=== PATIENT | female | born 1995 | race Hispanic/Latino ===

== ENCOUNTER 2021-03-17 22:00 | Emergency (ER) | payer SELFPAY ==
[~2021-03-17] VITALS: Ht 165.1 cm; Wt 103.4 kg
[2021-03-17] MEDS ORDERED: SODIUM CHLORIDE 0.9% 1000ML 1,000 ML IV SCH (22:30)
[2021-03-17] MEDS ORDERED: FAMOTIDINE 20 MG/2 ML VIAL IV STA (22:30)
[2021-03-17] MEDS ORDERED: ONDANSETRON HCL INJ 2MG/ML 2ML 2 MG/ML VIAL IV STA (22:30)
[2021-03-17] MEDS ORDERED: ONDANSETRON HCL INJ 2MG/ML 2ML 2 MG/ML VIAL ONE (22:51)
[2021-03-17] MEDS ORDERED: SODIUM CHLORIDE 0.9% 1000ML 1,000 ML ONE (22:51)
[2021-03-17] MEDS ORDERED: FAMOTIDINE 20 MG/2 ML VIAL IV ONE (22:52)
[2021-03-17] MEDS ORDERED: PROMETHAZINE HCL (IM) 25 MG/ML VIAL IM ONE (23:15)
[2021-03-17] MEDS ORDERED: SODIUM CHLORIDE 0.9% 50ML 50 ML ONE ×2 (23:15→23:19)
[2021-03-17] MEDS ORDERED: PROMETHAZINE 25MG/ NS 50ML (IV) IV ONE (23:15)
[2021-03-17] MEDS ORDERED: IOPAMIDOL 370 MG/ML 200 ML INFUS..BTL INJ ONE (23:19)
[2021-03-18] MEDS ORDERED: MORPHINE SULFATE INJ 4 MG/ML INJ 1ML IV STA (00:26)
[2021-03-18] MEDS ORDERED: METOCLOPRAMIDE HCL 10 MG/2ML VIAL ONE (01:00)
[2021-03-18] MEDS ORDERED: METOCLOPRAMIDE HCL 10 MG/2ML VIAL IV ONE (01:00)
[2021-03-18] MEDS ORDERED: MORPHINE SULFATE INJ 4 MG/ML INJ 1ML ONE (01:00)
[2021-03-18] MEDS ORDERED: PANTOPRAZOLE SO40 MG PO (01:27)
[2021-03-18] MEDS ORDERED: FAMOTIDINE40 MG PO (01:32)
[2021-03-18] MEDS ORDERED: PROMETHAZINE HC25 M1 PO (01:34)
[2021-03-18] MEDS ORDERED: ONDANSETRON ODT4 MG PO (01:34)
[2021-03-18 01:47] VITALS: BP 160/95
[2021-03-18] MEDS ORDERED: HALDOL1 MG PO (13:05)
== END 2021-03-18 01:47 | disposition home or self-care (01) ==
LOC: FSED 22:34
DX: R10.13 Epigastric pain (principal); R11.2 Nausea with vomiting, unspecified; K29.70 Gastritis, unspecified, without bleeding; F12.90 Cannabis use, unspecified, uncomplicated
CPT/HCPCS: 74177; 80048; 80076; 81003; 81025; 85025; 96374; 96375; 96376 ×2; 99284; J2270; J2405; J2550; J2765; J7030; Q9967

== ENCOUNTER 2021-03-18 12:34 | Emergency (ER) | payer SELFPAY ==
[~2021-03-18] VITALS: Ht 165.1 cm; Wt 99.8 kg
[~2021-03-18 12:34] MED LIST: FAMOTIDINE40 MG PO; ONDANSETRON ODT4 MG PO; PANTOPRAZOLE SO40 MG PO; PROMETHAZINE HC25 M1 PO
[2021-03-18] MEDS ORDERED: HALOPERIDOL LACTATE 5 MG/ML VIAL IM ONE ×2 (13:00→13:30)
[2021-03-18] MEDS ORDERED: HALOPERIDOL LACTATE 5 MG/ML VIAL ONE (13:02)
[2021-03-18] MEDS ORDERED: HALDOL1 MG PO (13:05)
[2021-03-18] MEDS ORDERED: DONNATAL/LIDOCAINE/MAALOX 30 ML SUSP PO STA (13:55)
[2021-03-18] MEDS ORDERED: MAGNESIUM/ALUMINUM/SIMETHICONE 30 ML UDC PO PRN (14:00)
[2021-03-18] MEDS ORDERED: BELLADONNA ALK/PHENOBARBITAL 5 ML UDC ONE (14:07)
[2021-03-18] MEDS ORDERED: LIDOCAINE VISC 2% SOLN 15 ML UDC ONE (14:07)
[2021-03-18 14:17] VITALS: BP 138/72
== END 2021-03-18 14:21 | disposition home or self-care (01) ==
LOC: FSED 12:53
DX: R11.2 Nausea with vomiting, unspecified (principal); F12.90 Cannabis use, unspecified, uncomplicated
CPT/HCPCS: 96372; 99283; J1630

== ENCOUNTER 2021-06-05 06:00 | Emergency (ER) | payer MEDICARE ==
[~2021-06-05] VITALS: Ht 165.1 cm; Wt 98.9 kg
[~2021-06-05 06:00] MED LIST changes: +HALDOL1 MG PO
[2021-06-05] MEDS ORDERED: AUGMENTIN 875-1 EACH PO (08:10)
== END 2021-06-05 08:21 | disposition home or self-care (01) ==
LOC: FSED 07:55
DX: J02.9 Acute pharyngitis, unspecified (principal); H65.91 Unspecified nonsuppurative otitis media, right ear; I10 Essential (primary) hypertension
CPT/HCPCS: 81003; 81025; 83518; 99283

== ENCOUNTER 2022-07-20 12:46 | Emergency (ER) | payer SELFPAY ==
[~2022-07-20] VITALS: Ht 165.1 cm; Wt 95.3 kg
[~2022-07-20 12:46] MED LIST changes: +AUGMENTIN 875-1 EACH PO
[2022-07-20] MEDS ORDERED: KETOROLAC TROMETHAMINE 30 MG/ML VIAL ONE (13:17)
[2022-07-20] MEDS ORDERED: ONDANSETRON HCL INJ 2MG/ML 2ML 2 MG/ML VIAL ONE (13:17)
[2022-07-20] MEDS ORDERED: SODIUM CHLORIDE 0.9% 1000ML 1,000 ML ONE ×2 (13:17→14:04)
[2022-07-20] MEDS ORDERED: IOPAMIDOL 370 MG/ML 100 ML INFUS..BTL INJ ONE (13:38)
[2022-07-20] MEDS ORDERED: ONDANSETRON HCL INJ 2MG/ML 2ML 2 MG/ML VIAL IV STA ×2 (14:41→14:55)
[2022-07-20] MEDS ORDERED: METOCLOPRAMIDE HCL 10 MG/2ML VIAL IV ONE (14:45)
[2022-07-20] MEDS ORDERED: FAMOTIDINE 20 MG/2 ML VIAL IV STA (14:50)
[2022-07-20] MEDS ORDERED: KETOROLAC TROMETHAMINE 30 MG/ML VIAL IV STA (14:55)
[2022-07-20] MEDS ORDERED: SODIUM CHLORIDE 0.9% 1000ML 1,000 ML IV SCH ×2 (15:00)
[2022-07-20] MEDS ORDERED: DICYCLOMINE HCL 20 MG/2 ML VIAL IM ONE ×2 (15:00→15:18)
[2022-07-20] MEDS ORDERED: FAMOTIDINE 20 MG/2 ML VIAL IV ONE (15:18)
[2022-07-20] MEDS ORDERED: MACROBID 100 M100 MG PO (15:24)
[2022-07-20] MEDS ORDERED: ONDANSETRON ODT4 MG PO (15:24)
[2022-07-20 15:40] VITALS: BP 172/101
== END 2022-07-20 15:50 | disposition left against medical advice (07) ==
LOC: FSED 12:51
DX: R11.2 Nausea with vomiting, unspecified (principal); R19.7 Diarrhea, unspecified; Z20.822 Contact with and (suspected) exposure to COVID-19; F12.10 Cannabis abuse, uncomplicated; N30.90 Cystitis, unspecified without hematuria; Z53.21 Procedure and treatment not carried out due to patient leaving prior to being seen by health care provider
CPT/HCPCS: 70450; 72125; 74177; 80048; 80076; 81003; 81025; 85025; 93005; 99284; J0500; J1885; J2405; J2765; J7030; Q9967